=== PATIENT | male | born 1970 | race Caucasian/White ===

== ENCOUNTER → 2020-09-08 01:41 | Outpatient (CLI) | payer OTHER, SELFPAY ==
[2020-09-09 08:28] LABS: SARS-CoV-2 RNA PCR Negative
== END ==
PROVIDERS: PCP Family Medicine; Visit Provider Internal Medicine Gastroenterology
DX: Z01.812 Encounter for preprocedural laboratory examination (principal); Z20.822 Contact with and (suspected) exposure to COVID-19
CPT/HCPCS: C9803; U0003; U0005

== ENCOUNTER 2020-09-11 01:01 | Day surgery (SDC) | payer OTHER, SELFPAY ==
[2020-08-29 15:25] VITALS: BMI 25.4
[2020-09-11 08:52] VITALS: BP 122/79; PULSE 71; RESP 18; TEMP 36.2; O2SAT 100
[2020-09-11] MEDS: LACTATED RINGERS 1,000 ML 150 ML IV CONT (09:00)
--- NOTE | 2020-09-11 09:42 | WPDANESEPPF ---
Anes - Initial Pre Proc Eval Procedure: Operation Date: 09/11/20 10:00 Proposed Procedures p Colonoscopy - Ze Montemayor MD Date/Time: 09/11/20 09:42 Surgeon: Ze Montemayor MD Pre Op Diagnosis: Diarrhea Patient Data Age: 50 Gender: M Height: 6 ft 6 in Weight: 97.8 kg Last Vital Signs Temp 97.2 F L 09/11/20 08:52 Pulse 71 09/11/20 08:52 Resp 18 09/11/20 08:52 BP 122/79 09/11/20 08:52 Pulse Ox 100 09/11/20 08:52 Allergies Allergy/AdvReac Type Severity Reaction Status Date / Time No Known Allergies Allergy Verified 08/29/20 15:25 Home Medications Medication Instructions Recorded Confirmed Type No Home Medications 09/11/20 09/11/20 History Patient hx anesthesia problems: none Family hx anesthesia problems: none PMFSH Past Medical History Medical History BMI 25.0-25.9,adult Family History Family History Father Hypertension Family history of cardiovascular disease Acute myocardial infarction Mother Family history of cardiovascular disease Family history of malignant neoplasm of breast in first degree relative Family history of malignant neoplasm of breast Heart disease Sibling No problems noted. 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 Questions were solicited and answers provided to the satisfaction of the patient/family/POA.
--- NOTE | 2020-09-11 09:55 | PM.HPGS ---
History of Present Illness History of Present Illness Consent: Risks, benefits, and alternatives have been discussed and questions answered. Patient agrees to proceed with procedure. Chief complaint: Diarrhea Narrative: Duncan Mckeon Jr. is a 50 year old male here for first screening colonoscopy, also abnormal stools for a year since he had episode of diarrhea that lasted week Review of Systems Constitutional: Constitutional: Denies headache(s) and Denies weakness Eyes: Eyes: Denies blurry vision ENT: Reports Normal hearing present, Denies headache(s) and Denies neck pain Cardiovascular: Cardiovascular: Denies chest pain and Denies dyspnea Respiratory: Respiratory: Denies dyspnea Gastrointestinal: Gastrointestinal: Reports no additional gastrointestinal complaints Genitourinary: Genitourinary: Denies dysuria Musculoskeletal: Musculoskeletal: Denies neck pain Integumentary/Breasts: Skin/Breast: Denies dry skin Neurologic: Reports Normal hearing present, Denies headache(s) and Denies weakness Psychiatric: Psychiatric: Denies anxiety Endocrine: Endocrine: Denies change in body appearance Hematologic/Lymphatic: Hematologic/Lymphatic: Denies easy bleeding Allergic/Immunologic: Allergic/Immunologic: Denies urticaria PMF Past Medical History Medical History BMI 25.0-25.9,adult Family History Family History Father Hypertension Family history of cardiovascular disease Acute myocardial infarction Mother Family history of cardiovascular disease Family history of malignant neoplasm of breast in first degree relative Family history of malignant neoplasm of breast Heart disease Sibling No problems noted. 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 Gender identity (if verbalized by the patient): Male Spiritual care concerns: No Meds Home Medications and Allergies Home Medications Medication Instructions Recorded Confirmed Type No Home Medications 09/11/20 09/11/20 History Allergies Allergy/AdvReac Type Severity Reaction Status Date / Time No Known Allergies Allergy Verified 08/29/20 15:25 Vital Signs Vital Signs - 24 hr 09/11/20 08:52 Temperature 97.2 F L Pulse Rate 71 Respiratory Rate 18 Blood Pressure 122/79 Pulse Oximetry 100 Exam Const: General: comfortable and no acute distress HENMT: General nose exam: Normal nares present Eyes: General: appearance normal, both eyes and all related structures Neck: Neck: no JVD Resp: Auscultation: clear to auscultation bilaterally Cardio: Rate: regular rate Rhythm: regular rhythm GI: Inspection: non-distended GI Palp: Yes Soft to palpation Skin: General skin exam: normal color Neuro: General: gait normal Speech: normal speech Extrem: General: normal to inspection Psych: Mental Status: mental status grossly normal Assessment and Plan Assessment and plan (1) Diarrhea: Code(s): R19.7 - Diarrhea, unspecified Status: Acute (2) Colon cancer screening: Code(s): Z12.11 - Encounter for screening for malignant neoplasm of colon Status: Acute Assessment and Plan: colonoscopy
[2020-09-11 10:09] VITALS: BP 126/78; PULSE 64; RESP 16; O2SAT 98
[2020-09-11 10:19] VITALS: BP 120/74; PULSE 59; RESP 21; O2SAT 98
[2020-09-11 10:29] VITALS: BP 116/79; PULSE 58; RESP 21; O2SAT 99
== END 2020-09-11 10:39 | disposition home or self-care (01) ==
PROVIDERS: PCP Family Medicine; Visit Provider Internal Medicine Gastroenterology
PROC: 0DJD8ZZ Inspection of Lower Intestinal Tract, Via Natural or Artificial Opening Endoscopic (ICD-10-PCS; CPT 45378; principal; 2020-09-11 10:00)
DX: Z12.11 Encounter for screening for malignant neoplasm of colon (principal); K52.9 Noninfective gastroenteritis and colitis, unspecified; K64.8 Other hemorrhoids; K64.4 Residual hemorrhoidal skin tags
CPT/HCPCS: 45380; 88305; J2704; J7120

== ENCOUNTER 2020-09-28 12:18 | Outpatient (CLI) | payer OTHER, SELFPAY ==
[2020-09-28 12:40] LABS: Hematocrit 40.1 % (42.0-52.0); Mean Corpuscular HGB Conc 32.4 g/dl (32-36); Mean Corpuscular Hemoglobin 30.8 pg (26-34); Platelet Count Result 480 k/mm3 (150-375); Red Blood Count 4.22 M/mm3 (4.6-6.20); White Blood Count 8.1 K/mm3 (4.5-10.0)
[2020-09-28 12:59] LABS: Rheumatoid Factor < 8.6 IU/ML (<12)
[2020-09-28 13:08] LABS: Alanine Aminotransferase 47 U/L (4-50); Albumin Level 3.9 g/dL (3.5-5.1); Alkaline Phosphatase 96 U/L (38-126); Anion Gap 4 mmol/L (8-16); Aspartate Amino Transferase 40 U/L (17-59); Bilirubin,Total 0.3 mg/dL (0.2-1.3); Blood Urea Nitrogen 15 mg/dL (9-20); CRP 1.7 mg/dL (<1.0); Calcium 9.2 mg/dL (8.4-10.2); Carbon Dioxide 32 mmol/L (22-30); Chloride 102 mmol/L (98-107); Creatine Kinase 82 U/L (55-170); Estimated Glomerular Filt Rate > 60; Glucose 95 mg/dL (75-110); Potassium 4.4 mmol/L (3.4-5.0); Sodium 138 mmol/L (137-145)
[2020-09-28 13:14] LABS: Erythrocyte Sedimentation Rate 36 mm/hr (0-20)
[2020-09-28 13:52] LABS: Hepatitis B Surface Antigen Negative (Negative)
[2020-09-28 14:10] LABS: Hepatitis B Surface Anti Res Negative
[2020-10-02 08:34] LABS: Hepatitis B Core Ab Total Nonreactive (Nonreactive)
[2020-10-03 06:29] LABS: Aldolase 5.8 U/L (<=8.1)
[2020-10-06 17:31] LABS: TPMT Activity 15
== END 2020-09-28 12:19 | disposition home or self-care (01) ==
PROVIDERS: PCP Family Medicine; Visit Provider Internal Medicine Gastroenterology
DX: K51.90 Ulcerative colitis, unspecified, without complications (principal); R19.7 Diarrhea, unspecified; M79.10 Myalgia, unspecified site
CPT/HCPCS: 36415; 80053; 82085; 82550; 82657; 85027; 85652; 86038; 86140; 86430; 86704; 86706; 87340

== ENCOUNTER 2020-10-03 08:58 | Outpatient (CLI) | payer OTHER, SELFPAY ==
[2020-10-05 20:31] LABS: NIL 0.03 IU/mL; Quantiferon TB Plus, 1T NEGATIVE (NEGATIVE)
== END 2020-10-03 08:59 | disposition home or self-care (01) ==
PROVIDERS: PCP Family Medicine; Visit Provider Internal Medicine Gastroenterology
DX: K51.90 Ulcerative colitis, unspecified, without complications (principal); R19.7 Diarrhea, unspecified
CPT/HCPCS: 36415; 86480

== ENCOUNTER 2021-07-24 10:42 | Outpatient (CLI) | payer OTHER, SELFPAY ==
[2021-07-24 11:17] LABS: Hematocrit 42.2 % (42.0-52.0); Hemoglobin 13.8 g/dL (14.0-18.0); Mean Corpuscular HGB Conc 32.7 g/dl (32-36); Mean Corpuscular Hemoglobin 31.8 pg (26-34); Mean Corpuscular Volume 97.2 fl (80-100); Mean Platelet Volume 10.2 fl (7.4-10.4); Platelet Count Result 239 k/mm3 (150-375); Red Blood Count 4.34 M/mm3 (4.6-6.20); Red Cell Distribution Width 13.7 % (11.5-14.5); White Blood Count 5.9 K/mm3 (4.5-10.0)
[2021-07-24 11:34] LABS: Alanine Aminotransferase 26 U/L (4-50); Albumin Level 4.2 g/dL (3.5-5.1); Alkaline Phosphatase 71 U/L (38-126); Anion Gap 7 mmol/L (8-16); Aspartate Amino Transferase 30 U/L (17-59); Bilirubin,Total 0.4 mg/dL (0.2-1.3); Blood Urea Nitrogen 14 mg/dL (9-20); CRP 1.2 mg/dL (<1.0); Calcium 8.8 mg/dL (8.4-10.2); Carbon Dioxide 30 mmol/L (22-30); Chloride 101 mmol/L (98-107); Estimated Glomerular Filt Rate > 60; Glucose 95 mg/dL (65-110); Potassium 4.3 mmol/L (3.4-5.0); Sodium 138 mmol/L (137-145)
[2021-07-24 12:04] LABS: Erythrocyte Sedimentation Rate 14 mm/hr (0-20)
== END 2021-07-24 10:43 | disposition home or self-care (01) ==
LOC: ANHLAB 10:43
PROVIDERS: PCP Family Medicine; Visit Provider Internal Medicine Gastroenterology
DX: K51.90 Ulcerative colitis, unspecified, without complications (principal)
CPT/HCPCS: 36415; 80053; 85027; 85652; 86140

== ENCOUNTER 2021-08-13 00:33 | Day surgery (SDC) | payer OTHER, SELFPAY ==
[2021-08-03 13:14] VITALS: BMI 25.9
[2021-08-13 08:58] VITALS: BP 124/76; PULSE 53; RESP 18; TEMP 36; O2SAT 99
[2021-08-13] MEDS: LACTATED RINGERS 1,000 ML 150 ML IV CONT (09:00)
--- NOTE | 2021-08-13 09:23 | P.PNAN_ITS ---
Anes - Initial Pre Proc Eval Procedure: Operation Date: 08/13/21 10:00 Proposed Procedures p Colonoscopy - Ze Montemayor MD Date/Time: 08/13/21 09:23 Surgeon: Ze Montemayor MD Pre Op Diagnosis: ulcerative colitis Patient Data Age: 51 Gender: M Height: 1.98 m Weight: 105.2 kg Last Vital Signs Temp 36.0 C L 08/13/21 08:58 Pulse 53 L 08/13/21 08:58 Resp 18 08/13/21 08:58 BP 124/76 08/13/21 08:58 Pulse Ox 99 08/13/21 08:58 Allergies Allergy/AdvReac Type Severity Reaction Status Date / Time No Known Allergies Allergy Verified 08/13/21 08:56 Home Medications Medication Instructions Recorded Confirmed Type mesalamine 1.2 g PO DAILY 08/03/21 08/13/21 History Patient hx anesthesia problems: none Family hx anesthesia problems: none Results Review: All pre-operative results and documents have been reviewed as part of the pre-operative evaluation. [facility] Past Medical History Medical History BMI 25.0-25.9,adult Colon cancer screening Myalgia Ulcerative colitis Family History Family History Father Hypertension Family history of cardiovascular disease Acute myocardial infarction Mother Family history of cardiovascular disease Family history of malignant neoplasm of breast in first degree relative Family history of malignant neoplasm of breast Heart disease Sibling No problems noted. 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 Informed Consent: The patient's anesthetic plan and its attendant risks and benefits were discussed with the patient/family/POA. Questions were solicited and answers provided to the satisfaction of the patient/family/POA.
--- NOTE | 2021-08-13 09:51 | WPDHPUPDATE1 ---
History and Physical Update Update Date/Time: 08/13/21 09:51 History and Physical has been reviewed, including an updated exam of the patient. There are NO changes in the patient's condition. Risks, benefits, and alternatives have been discussed and questions answered. Patient agrees to proceed with procedure.
[2021-08-13 10:10] VITALS: BP 110/65; PULSE 51; RESP 12; O2SAT 98
[2021-08-13 10:20] VITALS: BP 110/63; PULSE 49; RESP 12; O2SAT 98
[2021-08-13 10:30] VITALS: BP 116/77; PULSE 50; RESP 12; O2SAT 98
== END 2021-08-13 10:45 | disposition home or self-care (01) ==
PROVIDERS: PCP Family Medicine; Visit Provider Internal Medicine Gastroenterology
PROC: 0DJD8ZZ Inspection of Lower Intestinal Tract, Via Natural or Artificial Opening Endoscopic (ICD-10-PCS; CPT 45378; principal; 2021-08-13 10:00)
DX: K51.90 Ulcerative colitis, unspecified, without complications (principal); K63.5 Polyp of colon; K64.8 Other hemorrhoids
CPT/HCPCS: 45380; 88305; J2704; J7120

== ENCOUNTER 2021-12-29 12:22 | Emergency (ER) | payer OTHER, SELFPAY ==
[2021-12-29 12:27] VITALS: BP 139/75; PULSE 65; RESP 18; TEMP 36.5; O2SAT 100
--- NOTE | 2021-12-29 12:58 | ED.GENADULT ---
HPI - General Adult General Chief complaint: Upper Respiratory Infection Stated complaint: chest sepideh,cough History of Present Illness HPI narrative: Patient is a 51-year-old male who presents to the [facility] care via POV for evaluation of URI symptoms that have been present for 1 week. Additionally, patient reports dry cough and chest congestion. No relief with Robitussin, decongestants, and TheraFlu. Nothing improves or worsen symptoms. Patient is vaccinated against COVID although not vaccinated against influenza. Denies known exposure to sick contacts. Related Data Allergies Allergy/AdvReac Type Severity Reaction Status Date / Time No Known Allergies Allergy Verified 12/10/21 08:53 Review of Systems Review of Systems: Denies fever, chills, sweats, change in appetite, poor p.o. intake, dizziness, headaches, sinus pressure, sinus pain, ear problems, nasal drainage, shortness of breath, cyanosis, wheezing, nausea, vomiting, diarrhea, abdominal pain, chest pain, and heart palpitations PMFSH Past Medical History Medical History BMI 25.0-25.9,adult Colon cancer screening Myalgia Ulcerative colitis Family History Family History Father Hypertension Family history of cardiovascular disease Acute myocardial infarction Mother Family history of cardiovascular disease Family history of malignant neoplasm of breast in first degree relative Family history of malignant neoplasm of breast Heart disease Sibling No problems noted. 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 There is no relevant family history pertinent to the presenting complaint. Exam Narrative: GENERAL: Well-appearing, well-nourished, and in no acute distress. HEAD: Normocephalic, atraumatic. No sinus tenderness or facial swelling appreciated. EYES: PERRLA and EOMI. No evidence of erythema, swelling, or drainage. ENT: Bilateral external ears and ear canals normal. Bilateral TMs are normal.No TM perforation. Nares clear, no rhinorrhea or epistaxis. Bilateral turbinates without erythema/ swelling. Mucous membranes moist and pink. Uvula is midline without erythema and swelling. No evidence of petechial rash, cobblestoning, lesions, ulcers, erythema, swelling, exudates, peritonsillar abscess, tenting, or drooling. Breath odor and voice normal. NECK: Supple. No Lymphadenopathy or nuchal rigidity appreciated. CHEST: Bilateral lung mcdonough are clear to auscultation. No respiratory distress. No evidence of pleuritic cp upon examination. Dry cough appreciated upon examination. Cough is subtle. HEART: Regular rate and rhythm. No murmur, gallop, or rub heard. EXTREMITIES: Normal range of motion. No edema. SKIN: Warm, dry, no rash. NEURO: No focal deficits. Alert and oriented x3. Course Course Level of Care: Express Care Visit Vital Signs Vital signs: Vital Signs Temperature 97.7 F 12/29/21 12:27 Pulse Rate 65 12/29/21 12:27 Respiratory Rate 18 12/29/21 12:27 Blood Pressure 139/75 12/29/21 12:27 Pulse Oximetry 100 12/29/21 12:27 Temperature 97.7 F 12/29/21 12:27 Pulse Rate 65 12/29/21 12:27 Respiratory Rate 18 12/29/21 12:27 Blood Pressure 139/75 12/29/21 12:27 Pulse Oximetry 100 12/29/21 12:27 Medical Decision Making Differential Diagnosis Differential Diagnosis:
== END 2021-12-29 13:02 | disposition home or self-care (01) ==
PROVIDERS: Emergency Provider Nurse Practitioner Family; PCP Family Medicine
DX: J06.9 Acute upper respiratory infection, unspecified (principal)
CPT/HCPCS: 99213; G0463

== ENCOUNTER 2022-02-26 16:25 | Outpatient (CLI) | payer OTHER, SELFPAY ==
--- NOTE | ~2022-02-26 | XR_ITS ---
EXAM: XR toe 4th LT min 2V DATE: 02/26/2022 17:08 HISTORY: STUBBED TOE X5WKS AGO. PAIN TO 4TH DIGIT . COMPARISON: None available. FINDINGS: Decreased mineralization. Oblique nondisplaced fracture of the left fourth proximal phalan ge, with intra-articular extension. No lytic or blastic lesion. Joint spaces are maintained. No erosi on or periosteal change. Soft tissues within normal limits. IMPRESSION: Nondisplaced, oblique, intra-articular fracture of the left fourth proximal phalange. Reviewed, dictated and finalized at location K.
--- NOTE | 2022-02-26 16:39 | ECG_ITS ---
Measurements Intervals Lapel Rate: 42 P: 52 TN: 199 QRS: -20 QRSD: 107 T: 2 QT: 473 QTc: 396 Interpretive Statements SINUS BRADYCARDIA BORDERLINE ECG NO PREVIOUS ECG AVAILABLE FOR COMPARISON Electronically Signed On 02-26-2022 18:30:04 CDT by Dion Tao M.D.
[2022-02-26 16:54] LABS: Hematocrit 43.6 % (42.0-52.0); Hemoglobin 13.8 g/dL (14.0-18.0); Mean Corpuscular HGB Conc 31.7 g/dl (32-36); Mean Corpuscular Hemoglobin 30.9 pg (26-34); Mean Corpuscular Volume 97.5 fl (80-100); Mean Platelet Volume 10.1 fl (7.4-10.4); Platelet Count Result 279 k/mm3 (150-375); Red Blood Count 4.47 M/mm3 (4.6-6.20); Red Cell Distribution Width 13.2 % (11.5-14.5); White Blood Count 7.5 K/mm3 (4.5-10.0)
[2022-02-26 17:06] LABS: Cholesterol 188 mg/dL (0-200); HDL Direct 67 mg/dL; Triglycerides 73 mg/dL (<150)
[2022-02-26 17:12] LABS: Alanine Aminotransferase 18 U/L (6-50); Albumin Level 4.5 g/dL (3.5-5.1); Alkaline Phosphatase 66 U/L (38-126); Anion Gap 9 mmol/L (8-16); Aspartate Amino Transferase 27 U/L (17-59); Bilirubin,Total 0.4 mg/dL (0.2-1.3); Blood Urea Nitrogen 18 mg/dL (9-20); CRP < 0.5 mg/dL (<1.0); Calcium 8.8 mg/dL (8.4-10.2); Carbon Dioxide 26 mmol/L (22-30); Chloride 104 mmol/L (98-107); Estimated Glomerular Filt Rate 58; Glucose 91 mg/dL (65-110); Potassium 4.6 mmol/L (3.4-5.0); Sodium 139 mmol/L (137-145)
[2022-02-26 17:31] LABS: LDL Cholesterol Direct 94 mg/dL
[2022-02-26 17:39] LABS: Prostate Specific Antigen 0.8 ng/mL (< OR = 4.0); Thyroid Stimulating Hormone 0.991 uIU/mL (0.465-4.680)
[2022-02-26 17:54] LABS: Erythrocyte Sedimentation Rate 9 mm/hr (0-20)
== END 2022-02-26 16:26 | disposition home or self-care (01) ==
PROVIDERS: Nurse Practitioner Family; PCP Family Medicine; Visit Provider Internal Medicine Gastroenterology
DX: K51.90 Ulcerative colitis, unspecified, without complications (principal); Z13.220 Encounter for screening for lipoid disorders; Z13.29 Encounter for screening for other suspected endocrine disorder; Z12.5 Encounter for screening for malignant neoplasm of prostate; R03.0 Elevated blood-pressure reading, without diagnosis of hypertension; M79.676 Pain in unspecified toe(s); S92.515A Nondisplaced fracture of proximal phalanx of left lesser toe(s), initial encounter for closed fracture; X58.XXXA Exposure to other specified factors, initial encounter; R94.31 Abnormal electrocardiogram [ECG] [EKG]
CPT/HCPCS: 36415; 73660; 80053; 80061; 84153; 84443; 85027; 85652; 86140; 93005; G0103

== ENCOUNTER 2022-09-13 08:26 | Outpatient (CLI) | payer OTHER, SELFPAY ==
[2022-09-13 08:56] LABS: Hematocrit 45.3 % (42.0-52.0); Hemoglobin 14.6 g/dL (14.0-18.0); Mean Corpuscular HGB Conc 32.2 g/dl (32-36); Mean Corpuscular Hemoglobin 31.3 pg (26-34); Platelet Count Result 277 k/mm3 (150-375); Red Blood Count 4.67 M/mm3 (4.6-6.20); Red Cell Distribution Width 14.1 % (11.5-14.5); White Blood Count 6.3 K/mm3 (4.5-10.0)
[2022-09-13 09:09] LABS: Alanine Aminotransferase 40 U/L (6-50); Albumin Level 4.4 g/dL (3.5-5.1); Alkaline Phosphatase 75 U/L (38-126); Anion Gap 5 mmol/L (8-16); Aspartate Amino Transferase 50 U/L (17-59); Bilirubin,Total 0.9 mg/dL (0.2-1.3); Blood Urea Nitrogen 24 mg/dL (9-20); CRP < 0.5 mg/dL (<1.0); Calcium 8.8 mg/dL (8.4-10.2); Carbon Dioxide 29 mmol/L (22-30); Chloride 105 mmol/L (98-107); Estimated Glomerular Filt Rate > 60; Glucose 89 mg/dL (65-110); Potassium 4.2 mmol/L (3.4-5.0); Sodium 139 mmol/L (137-145)
[2022-09-13 11:16] LABS: Erythrocyte Sedimentation Rate 8 mm/hr (0-20)
== END 2022-09-13 08:27 | disposition home or self-care (01) ==
LOC: ANHLAB 08:27
PROVIDERS: PCP Family Medicine; Visit Provider Internal Medicine Gastroenterology
DX: K51.90 Ulcerative colitis, unspecified, without complications (principal)
CPT/HCPCS: 36415; 80053; 85027; 85652; 86140

== ENCOUNTER 2022-12-09 07:08 | Outpatient (CLI) | payer OTHER, SELFPAY ==
[2022-12-09 08:15] LABS: Cholesterol 225 mg/dL (0-200); HDL Direct 62 mg/dL; Triglycerides 64 mg/dL (<150)
[2022-12-09 08:26] LABS: LDL Cholesterol Direct 138 mg/dL
[2022-12-09 08:45] LABS: Prostate Specific Antigen 0.7 ng/mL (< OR = 4.0)
== END 2022-12-09 07:09 | disposition home or self-care (01) ==
PROVIDERS: PCP Family Medicine; Visit Provider Nurse Practitioner Family
DX: Z12.5 Encounter for screening for malignant neoplasm of prostate (principal); Z13.220 Encounter for screening for lipoid disorders
CPT/HCPCS: 36415; 80061; 84153; 84443; G0103

== ENCOUNTER 2023-01-15 08:41 | Outpatient (CLI) | payer OTHER, SELFPAY ==
--- NOTE | 2023-01-15 08:47 | EST_ITS ---
Patient Info Name: Duncan Mckeon Age: 52 years : 1970 Gender: Male Ht: 78 in Wt: 235 lbs BSA: 2.43 m2 HR: 56 bpm BP: 123 / 91 mmHg Heart Rhythm: Sinus Rhythm Exam Date: 01/15/2023 8:58 AM Exam Location: [facility] Stress Patient Status: Outpatient Admit Date: 01/15/2023 Staff Ordering Physician: Janet Hernandez Attending Provider: Janet Hernandez Exercise Technologist: Lety Gann CT Exercise Physician: Anthony Wilson DO Exam Type: CA stress test treadmill Study Info Indications Z82.49 - Family history of ischemic heart disease and other diseases of the circulatory system R06.02 - Shortness of breath A treadmill exercise stress test was performed. Summary 1. 1. Negative Jimbo exercise stress test for ischemic ST changes by ECG criteria. 2. 2. Good functional capacity, achieving 12 METs of workload. 3. 3. Appropriate HR response to exercise. 4. 4. Appropriate HR recovery at 1 minute post exercise. 5. 5. No imaging with stress testing. 6. 6. Patient informed of the above results. Protocol: Jimbo Stress ECG Details Stage: REST Duration (min): 1 min : 0 sec Speed (mph): 0.0 Grade (%): 0 HR (bpm): 51 SBP (mmHg): 123 DBP (mmHg): 91 METS: --- Stage: REST Duration (min): 5 min : 8 sec Speed (mph): 0.0 Grade (%): 0 HR (bpm): 76 SBP (mmHg): 123 DBP (mmHg): 91 METS: --- Stage: STAGE 1 Duration (min): 1 min : 0 sec Speed (mph): 1.7 Grade (%): 10 HR (bpm): 84 SBP (mmHg): 123 DBP (mmHg): 91 METS: --- Stage: STAGE 1 Duration (min): 2 min : 0 sec Speed (mph): 1.7 Grade (%): 10 HR (bpm): 85 SBP (mmHg): 123 DBP (mmHg): 91 METS: --- Stage: STAGE 1 Duration (min): 3 min : 0 sec Speed (mph): 1.7 Grade (%): 10 HR (bpm): 80 SBP (mmHg): 138 DBP (mmHg): 63 METS: --- Stage: STAGE 2 Duration (min): 1 min : 0 sec Speed (mph): 2.5 Grade (%): 12 HR (bpm): 94 SBP (mmHg): 138 DBP (mmHg): 63 METS: --- Stage: STAGE 2 Duration (min): 2 min : 0 sec Speed (mph): 2.5 Grade (%): 12 HR (bpm): 98 SBP (mmHg): 142 DBP (mmHg): 66 METS: --- Stage: STAGE 2 Duration (min): 3 min : 0 sec Speed (mph): 2.5 Grade (%): 12 HR (bpm): 99 SBP (mmHg): 142 DBP (mmHg): 66 METS: --- Stage: STAGE 3 Duration (min): 1 min : 0 sec Speed (mph): 3.4 Grade (%): 14 HR (bpm): 110 SBP (mmHg): 167 DBP (mmHg): 59 METS: --- Stage: STAGE 3 Duration (min): 2 min : 0 sec Speed (mph): 3.4 Grade (%): 14 HR (bpm): 113 SBP (mmHg): 167 DBP (mmHg): 59 METS: --- Stage: STAGE 3 Duration (min): 3 min : 0 sec Speed (mph): 3.4 Grade (%): 14 HR (bpm): 116 SBP (mmHg): 194 DBP (mmHg): 87 METS: --- Stage: STAGE 4 Duration (min): 1 min : 0 sec Speed (mph): 4.2 Grade (%): 16 HR (bpm): 130 SBP (mmHg): 194 DBP (mmHg): 87 METS: --- Stage: STAGE 4 Duration (min): 2 min : 0 sec Speed (mph
== END 2023-01-15 08:42 | disposition home or self-care (01) ==
PROVIDERS: PCP Family Medicine; Visit Provider Nurse Practitioner Family
DX: R06.02 Shortness of breath (principal); Z82.49 Family history of ischemic heart disease and other diseases of the circulatory system
CPT/HCPCS: 93017

== ENCOUNTER 2023-04-16 15:02 | Outpatient (CLI) | payer OTHER, SELFPAY ==
[2023-04-16 15:28] LABS: Hemoglobin 14.5 g/dL (14.0-18.0); Mean Corpuscular HGB Conc 32.2 g/dl (32-36); Mean Corpuscular Hemoglobin 31.1 pg (26-34); Mean Corpuscular Volume 96.6 fl (80-100); Platelet Count Result 295 k/mm3 (150-375); Red Blood Count 4.66 M/mm3 (4.6-6.20); Red Cell Distribution Width 13.2 % (11.5-14.5); White Blood Count 5.6 K/mm3 (4.5-10.0)
[2023-04-16 15:39] LABS: Alanine Aminotransferase 31 U/L (6-50); Albumin Level 4.2 g/dL (3.5-5.1); Alkaline Phosphatase 89 U/L (38-126); Anion Gap 6 mmol/L (8-16); Aspartate Amino Transferase 34 U/L (17-59); Bilirubin,Total 0.6 mg/dL (0.2-1.3); Blood Urea Nitrogen 21 mg/dL (9-20); CRP < 0.5 mg/dL (<1.0); Carbon Dioxide 27 mmol/L (22-30); Chloride 105 mmol/L (98-107); Estimated Glomerular Filt Rate 58; Glucose 93 mg/dL (65-110); Potassium 4.4 mmol/L (3.4-5.0); Sodium 138 mmol/L (137-145)
[2023-04-16 16:04] LABS: Erythrocyte Sedimentation Rate 6 mm/hr (0-20)
== END 2023-04-16 15:03 | disposition home or self-care (01) ==
PROVIDERS: PCP Family Medicine; Visit Provider Internal Medicine Gastroenterology
DX: K51.90 Ulcerative colitis, unspecified, without complications (principal)
CPT/HCPCS: 36415; 80053; 85027; 85652; 86140

== ENCOUNTER 2023-10-01 16:31 | Outpatient (CLI) | payer OTHER, SELFPAY ==
[2023-10-01 16:43] LABS: Hematocrit 47.5 % (42.0-52.0); Hemoglobin 15.5 g/dL (14.0-18.0); Mean Corpuscular HGB Conc 32.6 g/dl (32-36); Mean Corpuscular Hemoglobin 31.4 pg (26-34); Mean Corpuscular Volume 96.2 fl (80-100); Platelet Count Result 304 k/mm3 (150-375); Red Blood Count 4.94 M/mm3 (4.6-6.20); Red Cell Distribution Width 12.9 % (11.5-14.5); White Blood Count 5.7 K/mm3 (4.5-10.0)
[2023-10-01 17:05] LABS: Alanine Aminotransferase 24 U/L (6-50); Albumin Level 4.4 g/dL (3.5-5.1); Alkaline Phosphatase 76 U/L (38-126); Anion Gap 7 mmol/L (4-12); Aspartate Amino Transferase 36 U/L (17-59); Bilirubin,Total 0.4 mg/dL (0.2-1.3); Blood Urea Nitrogen 20 mg/dL (9-20); CRP < 0.5 mg/dL (<1.0); Calcium 9.1 mg/dL (8.4-10.2); Carbon Dioxide 26 mmol/L (22-30); Chloride 109 mmol/L (98-107); Estimated Glomerular Filt Rate 53; Glucose 84 mg/dL (65-110); Potassium 4.1 mmol/L (3.4-5.0); Sodium 142 mmol/L (137-145)
[2023-10-01 17:47] LABS: Erythrocyte Sedimentation Rate 5 mm/hr (0-20)
== END 2023-10-01 16:32 | disposition home or self-care (01) ==
LOC: ANHLAB 16:33
PROVIDERS: PCP Family Medicine; Visit Provider Nurse Practitioner
DX: K51.90 Ulcerative colitis, unspecified, without complications (principal)
CPT/HCPCS: 36415; 80053; 85027; 85652; 86140

== ENCOUNTER 2023-12-29 10:49 | Outpatient (CLI) | payer OTHER, SELFPAY ==
[2023-12-29 12:10] LABS: Anion Gap 9 mmol/L (4-12); Blood Urea Nitrogen 16 mg/dL (9-20); Calcium 9.3 mg/dL (8.4-10.2); Carbon Dioxide 25 mmol/L (22-30); Chloride 105 mmol/L (98-107); Cholesterol 206 mg/dL (0-200); Estimated Glomerular Filt Rate 53; Glucose 82 mg/dL (65-110); HDL Direct 61 mg/dL; Potassium 4.5 mmol/L (3.4-5.0); Sodium 139 mmol/L (137-145); Triglycerides 60 mg/dL (<150)
[2023-12-29 12:20] LABS: LDL Cholesterol Direct 115 mg/dL
[2023-12-29 12:40] LABS: Prostate Specific Antigen 0.7 ng/mL (< OR = 4.0)
[2023-12-29 13:05] LABS: Hepatitis B Surface Anti Res Negative
== END 2023-12-29 10:50 | disposition home or self-care (01) ==
LOC: ANHLAB 10:50
PROVIDERS: PCP Family Medicine; Visit Provider Family Medicine
DX: Z12.5 Encounter for screening for malignant neoplasm of prostate (principal); N28.9 Disorder of kidney and ureter, unspecified; Z13.220 Encounter for screening for lipoid disorders; Z13.0 Encounter for screening for diseases of the blood and blood-forming organs and certain disorders involving the immune mechanism; Z13.228 Encounter for screening for other metabolic disorders; Z13.29 Encounter for screening for other suspected endocrine disorder
CPT/HCPCS: 36415; 80048; 80061; 84153; 86706; G0103

== ENCOUNTER 2024-02-06 10:57 | Outpatient (CLI) | payer OTHER, SELFPAY ==
[2024-02-06 11:41] LABS: Hematocrit 45.5 % (42.0-52.0); Hemoglobin 14.5 g/dL (14.0-18.0); Mean Corpuscular HGB Conc 31.9 g/dl (32-36); Mean Corpuscular Hemoglobin 31.2 pg (26-34); Mean Corpuscular Volume 97.8 fl (80-100); Mean Platelet Volume 10.3 fl (7.4-10.4); Platelet Count Result 270 k/mm3 (150-375); Red Blood Count 4.65 M/mm3 (4.6-6.20); Red Cell Distribution Width 13.2 % (11.5-14.5); White Blood Count 4.6 K/mm3 (4.5-10.0)
[2024-02-06 11:54] LABS: Alanine Aminotransferase 22 U/L (6-50); Albumin Level 4.5 g/dL (3.5-5.1); Alkaline Phosphatase 57 U/L (38-126); Anion Gap 3 mmol/L (4-12); Aspartate Amino Transferase 26 U/L (17-59); Bilirubin,Total 0.6 mg/dL (0.2-1.3); Blood Urea Nitrogen 20 mg/dL (9-20); CRP < 0.5 mg/dL (<1.0); Calcium 9.3 mg/dL (8.4-10.2); Carbon Dioxide 31 mmol/L (22-30); Chloride 103 mmol/L (98-107); Estimated Glomerular Filt Rate 58; Glucose 95 mg/dL (65-110); Potassium 4.8 mmol/L (3.4-5.0); Sodium 137 mmol/L (137-145)
[2024-02-06 12:14] LABS: Erythrocyte Sedimentation Rate 6 mm/hr (0-20)
[2024-02-06 14:52] LABS: Hepatitis B Surface Antigen Negative (Negative)
[2024-02-06 15:09] LABS: Hepatitis B Surface Anti Res Negative
[2024-02-07 15:09] LABS: Hepatitis B Core Ab Total NON-REACTIVE (NON-REACTIVE)
[2024-02-10 15:03] LABS: NIL 0.02 IU/mL; Quantiferon TB Plus, 1T NEGATIVE (NEGATIVE)
== END 2024-02-06 10:58 | disposition home or self-care (01) ==
PROVIDERS: PCP Family Medicine; Visit Provider Nurse Practitioner
DX: K51.90 Ulcerative colitis, unspecified, without complications (principal); K90.9 Intestinal malabsorption, unspecified; R15.2 Fecal urgency; R19.7 Diarrhea, unspecified
CPT/HCPCS: 36415; 80053; 85027; 85652; 86140; 86480; 86704; 86706; 87340

== ENCOUNTER 2024-02-11 10:14 | Outpatient (CLI) | payer OTHER, SELFPAY ==
[2024-02-12 01:00] LABS: Toxigenic C. Diff NEGATIVE (NEGATIVE)
[2024-02-17 18:59] LABS: Calprotectin, Stool 6 mcg/g
[2024-02-17 19:14] LABS: Pancreatic Elastase, Stool >500 mcg/g
== END 2024-02-11 10:15 | disposition home or self-care (01) ==
LOC: ANHLAB 10:15
PROVIDERS: PCP Family Medicine; Visit Provider Nurse Practitioner
DX: K51.90 Ulcerative colitis, unspecified, without complications (principal); K90.9 Intestinal malabsorption, unspecified; R19.7 Diarrhea, unspecified; R15.2 Fecal urgency
CPT/HCPCS: 82653; 83993; 87045; 87324; 87427; 87449; 87493

== ENCOUNTER 2024-05-03 11:19 | Outpatient (CLI) | payer OTHER, SELFPAY ==
[2024-05-03 11:46] LABS: Hematocrit 44.7 % (42.0-52.0); Hemoglobin 14.3 g/dL (14.0-18.0); Mean Corpuscular Hemoglobin 30.9 pg (26-34); Mean Corpuscular Volume 96.5 fl (80-100); Mean Platelet Volume 9.8 fl (7.4-10.4); Platelet Count Result 308 k/mm3 (150-375); Red Blood Count 4.63 M/mm3 (4.6-6.20); White Blood Count 7.1 K/mm3 (4.5-10.0)
[2024-05-03 11:53] LABS: Alanine Aminotransferase 19 U/L (6-50); Albumin Level 4.3 g/dL (3.5-5.1); Alkaline Phosphatase 66 U/L (38-126); Anion Gap 6 mmol/L (4-12); Aspartate Amino Transferase 24 U/L (17-59); Bilirubin,Total 0.6 mg/dL (0.2-1.3); Blood Urea Nitrogen 17 mg/dL (9-20); CRP < 0.5 mg/dL (<1.0); Calcium 9.2 mg/dL (8.4-10.2); Carbon Dioxide 28 mmol/L (22-30); Chloride 104 mmol/L (98-107); Estimated Glomerular Filt Rate > 60; Glucose 95 mg/dL (65-110); Sodium 138 mmol/L (137-145)
[2024-05-03 12:15] LABS: Erythrocyte Sedimentation Rate 4 mm/hr (0-20)
[2024-05-03 12:56] LABS: Hepatitis B Surface Antigen Negative (Negative)
[2024-05-03 13:13] LABS: Hepatitis B Surface Anti Res Negative
[2024-05-05 08:03] LABS: Hepatitis B Core Ab Total NON-REACTIVE (NON-REACTIVE)
[2024-05-05 18:28] LABS: NIL 0.03 IU/mL; Quantiferon TB Plus, 1T NEGATIVE (NEGATIVE); TB1-NIL 0.01 IU/mL; TB2-NIL 0.02 IU/mL
== END 2024-05-03 11:20 | disposition home or self-care (01) ==
LOC: ANHLAB 11:20
PROVIDERS: PCP Family Medicine; Visit Provider Nurse Practitioner
DX: K51.90 Ulcerative colitis, unspecified, without complications (principal); R19.7 Diarrhea, unspecified
CPT/HCPCS: 36415; 80053; 85027; 85652; 86140; 86480; 86704; 86706; 87340

== ENCOUNTER 2024-05-04 07:30 | Outpatient (NON) | payer OTHER, SELFPAY ==
[2024-05-04 09:17] LABS: Toxigenic C. Diff NEGATIVE (NEGATIVE)
[2024-05-07 16:42] LABS: Concentrate Ova and Parasites No Ova or Parasites
[2024-05-07 16:44] LABS: Trichrome Ova and Parasites No Ova or Parasites
[2024-05-11 00:54] LABS: Calprotectin, Stool 101 mcg/g
== END 2024-05-04 07:31 | disposition home or self-care (01) ==
PROVIDERS: PCP Family Medicine; Visit Provider Nurse Practitioner
DX: R19.7 Diarrhea, unspecified (principal); K51.90 Ulcerative colitis, unspecified, without complications
CPT/HCPCS: 83993; 87045; 87177; 87209; 87269; 87427; 87449; 87493

== ENCOUNTER 2024-07-15 11:08 | Outpatient (CLI) | payer OTHER, SELFPAY ==
--- NOTE | ~2024-07-15 | XR_ITS ---
EXAMINATION: XR chest 2V 07/15/2024 11:52 INDICATION: Acute cough PROCEDURE: 2 view chest COMPARISON: No prior studies for comparison. FINDINGS: The lungs are clear. There is a prominent right nipple shadow. The cardiomediastinal silhou ette is within normal limits. There are no pleural effusions. There is no pneumothorax suspected. IMPRESSION: 1: NO ACUTE CARDIOPULMONARY DISEASE. Reviewed, dictated and finalized at location B. 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
== END 2024-07-15 11:09 | disposition home or self-care (01) ==
LOC: GOSHIMG 11:09
PROVIDERS: PCP Family Medicine; Visit Provider Family Medicine
DX: R05.1 Acute cough (principal)
CPT/HCPCS: 71046

== ENCOUNTER 2024-08-23 01:40 | Day surgery (SDC) | payer OTHER, SELFPAY ==
[2024-08-05 13:50] VITALS: BMI 26.7
--- OUTSIDE RECORDS SUMMARY | 2024-08-23 01:43 | XMS_ITS | Referral Summary ---
Author Organization [facility] Address [address] [place] [address] Care Team Providers Care Coach Name Role Phone Charly Gonzalez MD Primary Care Provider [phone] Allergies Active Allergy Reactions Criticality Noted Date Comments Venom-Honey Bee Anaphylaxis High Reaction: ANAPHYLAXIS, Medications cephalexin (KEFLEX) 500 mg capsule take 1 capsule by oral route every 6 hours 28 0 11/05/2013 Active EPINEPHrine (EPIPEN) 0.3 mg/0.3 mL injection syringe Take as directed 2 2 08/11/2008 Active cyclobenzaprine (FLEXERIL) 10 mg tablet 03/09/2018 Active naproxen (NAPROSYN) 500 mg tablet 03/13/2018 Active predniSONE (DELTASONE) 20 mg tablet 03/04/2018 Active mesalamine (PENTASA) 250 mg CR capsuleIndicati ons:Ulcerative Colitis Take 250 mg by mouth 4 (four) times a day Active Active Problems Problem Noted Date Diagnosed Date Actinic keratosis 03/12/2017 History of nonmelanoma skin cancer 03/12/2017 Lentigo 03/11/2016 Photoaged skin 03/11/2016 Multiple benign melanocytic nevi 03/07/2015 Cervicalgia 07/01/2014 Multiple-type hyperlipidemia 11/05/2013 Overview (10/11/2016): Mixed Hyperlipidemia Hypopigmentation 02/02/2013 Sunburn 02/02/2013 Immunizations Immunization Administration Dates Next Due Tdap 01/16/2010 Social History Tobacco Use Types Packs/Day Years Used Date Smoking Tobacco: Never Smokeless Tobacco: Never Tobacco Cessation:Counseling Given: Not Answered Alcohol Use Standard Drinks/Week Comments Yes 0 (1 standard drink = 0.6 oz pur e alcohol) Sex and Gender Information Value Date Recorded Sex Assigned at Not on file 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 Gender Identity Not on file Sexual Orientation Not on file Last Filed Vital Signs Vital Sign Reading Time Taken Comments Blood Pressure 128/72 05/11/2014 3:14 PM PLANER OPERATOR / GRADER Pulse 84 05/11/2014 3:14 PM PLANER OPERATOR / GRADER Temperature - - Respiratory Rate - - Oxygen Saturation - - Inhaled Oxygen Concentration - - Weight 104.8 kg (231 lb) 05/11/2014 3:14 PM PLANER OPERATOR / GRADER Height 198.1 cm (6' 6 ) 05/11/2014 3:14 PM PLANER OPERATOR / GRADER Body Mass Index 26.69 05/11/2014 3:14 PM PLANER OPERATOR / GRADER Plan of Treatment Not on file Insurance [facility] [id number] Member Subscriber Plan / Payer (Ef fective 2021-Present) Name:Duncan Mckeon Member ID:[id number] Relation to Subscriber:Self Name:Duncan Mckeon Subscriber ID:[id number] Payer ID:[id number] Type:Digital [employer] HMO/PPO Address: [address] [address] Care Teams Coach Relationship Specialty Start Date End Date Charly Gonzalez MD PCP - General Family Medicine 03/29/20
--- OUTSIDE RECORDS SUMMARY | 2024-08-23 01:43 | XMS_ITS | Continuity of Care Document ---
Author Organization [facility] Address [address] [place] [address] Phone Care Team Providers Care Reconciliation Accountant Name Role Phone Philip Higuera PT Unavailable Unavailable Procedures Procedure Date PT Evaluation Low Complexity Therapeutic Activities Neuromuscular Re-Ed Advance Directives Directive Yes / No Effective Date File Name No Information Encounters Encounter Description Practice Location Reason(s) For Visit Diagnoses Date Provider Providers Copied on Encounter [facility], [address], [place], [place], [id number], tel:[phone] [place] No Information [address] [facility], [address], [place], [place], [id number], tel:[phone] [place] No Information 2 Kalen Palacios. . Referring Provider: Charly Gonzalez, [address], [place], [address]. tel:[phone] Family History Family Member Type Diagnosis Age At Onset No Information Payers Payer name Insurance type Covered constitution party ID Authoriza tikallie(s) [employer] CI [id number] Social History Type Description Quantity Date Captured Comments Sex Male Smoking Status No Information Chief Complaint And Reason For Visit No Information Reason For Referral Reason For Referral No Information History Of Present Illness Encounter Date Complaint History Of Prese nt Illness No Information Functional Status Date Functional Assessmen t No Information Instructions Date Instruction Additional Infor omega Giving encouragement to exercise Related to Overweight Giving encouragement to exercise Related to Overweight Assessments Type Assessment Date No Information Patient Care Teams Name Effective Dates (start - stop) Status Members No Information
--- OUTSIDE RECORDS SUMMARY | 2024-08-23 01:44 | XMS_ITS | Clinical Summary ---
Author Organization [facility] Address [address] [place] [address] Care Team Providers Care Process Server Name Role Phone Charly Gonzalez MD Primary Care Provider Allergies Active Allergy Reactions Criticality Noted Date [...] Immunization Administration Dates Next Due Tdap 01/16/2010 Medical History Medical History Date Comments Hx Other Medical raynauds Hx Other Medical lumbar disc dis ease Hyperlipidemia Hyperlipidemia Hx Other Medical Back pain Family History Medical History Relation Name Comments Hypertension Father Family history of hypertension - (Added by TW Conv) Breast cancer Mother Family history of malignant neoplasm of breast - (Added by TW Conv) Heart disease Mother Family history of cardiac disorder - (Added by TW Conv) Alcohol abuse Other Family history of Alcoholism; Arthritis Other Family history of Arthritis; Cancer Other Family history of Cancer, unknown; Heart disease Other Family history of Heart disease; Hypertension Other Family history of Hypertension; Relation Name Status Comments Father Mother Other Social History Tobacco Use Types Packs/Day Years Used Date Smoking Tobacco: Never Smokeless Tobacco: Never Tobacco Cessation:Counseling Given: Not Answered Alcohol Use Standard Drinks/Week Comments Yes 0 (1 standard drink = 0.6 oz pur e alcohol) Sex and Gender Information Value Date Recorded Sex Assigned at Not on file 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 Gender Identity Not on file Sexual Orientation Not on file Obstetrics History Last Filed Vital Signs Vital Sign Reading Time Taken Comments Blood Pressure 128/72 05/11/2014 3:14 PM PREMIUM REPRESENTATIVE Pulse 84 05/11/2014 3:14 PM PREMIUM REPRESENTATIVE Temperature - - Respiratory Rate - - Oxygen Saturation - - Inhaled Oxygen Concentration - - Weight 104.8 kg (231 lb) 05/11/2014 3:14 PM PREMIUM REPRESENTATIVE Height 198.1 cm (6' 6 ) 05/11/2014 3:14 PM PREMIUM REPRESENTATIVE Body Mass Index 26.69 05/11/2014 3:14 PM PREMIUM REPRESENTATIVE Plan of Treatment Health Maintenance Due Date Last Done Comments Colon Cancer Screening-Colonoscopy 1970 Depression Screening 1969 Hepatitis C Screening 1970 Prostate Cancer Screening-PSA 1969 Hepatitis B Screening 1987 Regular Well Visit/Exam 18-64 1987 Zoster Vaccine (1 of 2) 2019 DTaP/Tdap/Td Vaccine (2 - Td or Tdap) 01/17/2020 01/16/2010 Covid-19 Vaccine (2023-2 5 season) 2024 06/27/2021, 08/23/2020, 07/25/2020 Influenza Vaccine (#1) 2024 Pneumococcal vaccine <65 Aged Out No longer eligible based on patient's age to complete this topic Insurance [facility] [id number] Care Teams Process Server Relationship Specialty Start Date End Date Charly Gonzalez MD PCP - General Family Medicine 03/29/20
[2024-08-23 11:55] VITALS: BP 131/77; PULSE 63; RESP 18; TEMP 36.1; O2SAT 100; BMI 27.0
[2024-08-23] MEDS: LACTATED RINGERS 1,000 ML 150 ML IV CONT (12:11)
--- NOTE | 2024-08-23 12:17 | P.PNAN_ITS ---
Anes - Initial Pre Proc Eval Procedure: Operation Date: 08/23/24 13:00 Proposed Procedures p Colonoscopy - Andres Mchugh MD Date/Time: 08/23/24 12:17 Surgeon: Andres Mchugh MD Pre Op Diagnosis: fecal urgency,ulcerative pancolitis Patient Data Age: 54 Gender: M Height: 1.98 m Weight: 106.1 kg Last Vital Signs Temp 36.1 C L 08/23/24 11:55 Pulse 63 08/23/24 11:55 Resp 18 08/23/24 11:55 BP 131/77 08/23/24 11:55 Pulse Ox 100 08/23/24 11:55 O2 Del Method Room Air 08/23/24 11:55 Allergies Allergy/AdvReac Type Severity Reaction Status Date / Time No Known Allergies Allergy Verified 08/23/24 11:59 Home Medications ?Medication ?Instructions ?Recorded ?Confirmed ?Type cyclobenzaprine 10 mg tablet 10 mg PO TID PRN muscle spasm #30 02/17/24 08/05/24 Rx tabs diazepam 2 mg tablet 2 mg PO BID PRN anxiety #10 tabs 05/19/24 08/05/24 Rx mesalamine 1.2 gram tablet,delayed See Rx Instructions .Route 05/24/24 08/23/24 Rx release .COMPLEX #90 tabs Patient hx anesthesia problems: none Family hx anesthesia problems: none Results Review: All pre-operative results and documents have been reviewed as part of the pre- operative evaluation. [facility] Past Medical History Medical History Screening for endocrine, metabolic, and immunity disorder Low kidney function Pseudopolyp of ascending colon Degenerative lumbar disc BMI 27.0-27.9,adult Myalgia Ulcerative colitis Colon cancer screening Family History Family History Father Hypertension Family history of cardiovascular disease Acute myocardial infarction Mother Family history of cardiovascular disease Family history of malignant neoplasm of breast in first degree relative Family history of malignant neoplasm of breast Heart disease Sibling No problems noted. Social History Social History Smoking status: Never smoker Second hand tobacco smoke exposure: Yes Alcohol intake: current Drinks per week: 4 Alcohol use details: WINE Substance use: never Substance use type: does not use Do You Feel Safe in your Home?: Yes Lack of Transportation: No Lack of Food: Never True Current Housing: I Have Housing Concerned About Future Housing: No Difficulty Paying Gas/Electric Bills: No Difficulty Paying for Meds: No Currently Unemployed: No Education: Bachelor's Degree Difficulty w/ Childcare or Family Care: No Living arrangements: with family Occupation/Education: occupation 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 Informed Consent: The patient's anesthetic plan and its attendant risks and benefits were discussed with the patient/family/POA. Questions were solicited and answers provided to the satisfaction of the patient/family/POA.
--- NOTE | 2024-08-23 13:15 | P.HP_ITS ---
H&P: HPI History of Present Illness Date/Time: 08/23/24 13:15 Chief Complaint: History of ulcerative colitis -rule out flare up Narrative: the patient has approximately a 3 year diagnosis of ulcerative colitis. he has been doing well on mesalamine, however has had 2 rounds of prednisone after which he improved but not completely. He is currently experiencing 3-4 episodes of diarrhea with urgency and no blood. His stool calprotectin from April 2024 was 101. He is here for colonoscopy. Review of Systems Review of Systems: All systems reviewed & are unremarkable except as noted in HPI and below PMFSH Past Medical History Medical History Screening for endocrine, metabolic, and immunity disorder Low kidney function Pseudopolyp of ascending colon Degenerative lumbar disc BMI 27.0-27.9,adult Myalgia Ulcerative colitis Colon cancer screening Family History Family History Father Hypertension Family history of cardiovascular disease Acute myocardial infarction Mother Family history of cardiovascular disease Family history of malignant neoplasm of breast in first degree relative Family history of malignant neoplasm of breast Heart disease Sibling No problems noted. Social History Social History Smoking status: Never smoker Second hand tobacco smoke exposure: Yes Alcohol intake: current Drinks per week: 4 Alcohol use details: WINE Substance use: never Substance use type: does not use Do You Feel Safe in your Home?: Yes Lack of Transportation: No Lack of Food: Never True Current Housing: I Have Housing Concerned About Future Housing: No Difficulty Paying Gas/Electric Bills: No Difficulty Paying for Meds: No Currently Unemployed: No Education: Bachelor's Degree Difficulty w/ Childcare or Family Care: No Living arrangements: with family Occupation/Education: occupation 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 Gender identity (if verbalized by the patient): Male Spiritual care concerns: No Meds Home Medications and Allergies Home Medications ?Medication ?Instructions ?Recorded ?Confirmed ?Type cyclobenzaprine 10 mg tablet 10 mg PO TID PRN muscle spasm #30 02/17/24 08/05/24 Rx tabs diazepam 2 mg tablet 2 mg PO BID PRN anxiety #10 tabs 05/19/24 08/05/24 Rx mesalamine 1.2 gram tablet,delayed See Rx Instructions .Route 05/24/24 08/23/24 Rx release .COMPLEX #90 tabs Allergies Allergy/AdvReac Type Severity Reaction Status Date / Time No Known Allergies Allergy Verified 08/23/24 11:59 Vital Signs Vital Signs - 24 hr 08/23/24 11:55 Temperature 97.0 F L Pulse Rate 63 Respiratory Rate 18 Blood Pressure 131/77 Pulse Oximetry 100 Oxygen Delivery Room Air Exam Narrative: GENERAL: Well-appearing, well-nourished, and in no acute distress. HEAD: Normocephalic, atraumatic. No sinus tenderness or facial swelling appreciated. EYES: PERRLA and EOMI. No evidence of erythema, swelling, or drainage. ENT: Bilateral external ears and ear canals normal. Bilateral TMs are normal.No TM perforation. Nares clear, no rhinorrhea or epistaxis. Bilateral turbinates without erythema/ swelling. Mucous membranes moist and pink. Uvula is midline without erythema and swelling. No evidence of petechial rash, cobblestoning, lesions, ulcers, erythema, swelling, exudates, peritonsillar abscess, tenting, or drooling. Breath odor and voice normal. NECK: Supple. No Lymphadenopathy or nuchal rigidity appreciated. CHEST: Bilateral lung mcdonough are clear to auscultation. No respiratory distress. No evidence of pleuritic cp upon examination. Dry cough appreciated upon examination. Cough is subtle. HEART: Regular rate and rhythm. No murmur, gallop, or rub heard. EXTREMITIES: Normal range of motion. No edema. SKIN: Warm, dry, no rash. NEURO: No focal deficits. Alert and oriented x3. Assessment and Plan Assessment and plan (1) Ulcerative colitis: Qualifiers: Ulcerative colitis location: ulcerative pancolitis Digestive disease complication type: without complication Qualified Code(s): K51.00 - Ulcerative (chronic) pancolitis without complications Code(s): K51.90 - Ulcerative colitis, unspecified, without complications Status: Acute Assessment and Plan: The patient is deemed a good candidate for the procedure. Consent signed. Will proceed.
[2024-08-23 13:43] VITALS: BP 93/58; PULSE 58; RESP 14; O2SAT 97
[2024-08-23 13:53] VITALS: BP 106/61; PULSE 60; RESP 21; O2SAT 99
[2024-08-23 14:03] VITALS: BP 112/67; PULSE 52; RESP 13; O2SAT 99
== END 2024-08-23 14:10 | disposition home or self-care (01) ==
PROVIDERS: PCP Family Medicine; Referring Provider Nurse Practitioner; Visit Provider Internal Medicine Gastroenterology
PROC: 0DJD8ZZ Inspection of Lower Intestinal Tract, Via Natural or Artificial Opening Endoscopic (ICD-10-PCS; CPT 45378; principal; 2024-08-23 13:00)
DX: K51.00 Ulcerative (chronic) pancolitis without complications (principal)
CPT/HCPCS: 45380; 88305; J2704; J7120

== ENCOUNTER 2024-08-26 10:11 | Outpatient (CLI) | payer OTHER, SELFPAY ==
--- NOTE | ~2024-08-26 | XR_ITS ---
Lumbosacral Spine: AP, oblique, and lateral views Clinical History: Pain Findings: The normal lordotic curve is maintained. No fracture or subluxation. There is advanced dege nerative disc narrowing L4-L5 and L5-S1. There is moderate to advanced facet arthropathy throughout t he lumbar spine, worst from L4 through S1. The sacroiliac joints are normally outlined. Impression: Moderate to advanced degenerative spondylosis, as above. Reviewed, dictated and finalized at location M. ATRIC NURSING ASSISTANT Impression: Moderate to advanced degenerative spondylosis, as above.
--- NOTE | ~2024-08-26 | XR_ITS ---
XR cervical spine min 6V 08/26/2024 10:32 Indication: Degenerative spondylosis Procedure: 6 view cervical spine Comparison: No prior studies for comparison. Findings: Normal cervical lordosis. There is disc narrowing at C4-5. Odontoid process is normal. Ther e is advanced facet degenerative change at C4-5 and C5-6. Lung apices are normal. No alteration of al ignment with flexion and extension. No prevertebral soft tissue abnormality. Craniovertebral junction is unremarkable. Impression: 1: Moderate cervical spondylosis. Reviewed, dictated and finalized at location B. SION SCIENCE ANALYST Impression: 1: Moderate cervical spondylosis.
== END 2024-08-26 10:12 | disposition home or self-care (01) ==
PROVIDERS: PCP Family Medicine; Visit Provider Nurse Practitioner Family
DX: M51.369 Other intervertebral disc degeneration, lumbar region without mention of lumbar back pain or lower extremity pain (principal); M50.30 Other cervical disc degeneration, unspecified cervical region; M47.892 Other spondylosis, cervical region
CPT/HCPCS: 72052; 72110

== ENCOUNTER 2024-11-02 11:12 | Outpatient (CLI) | payer OTHER, SELFPAY ==
[2024-11-02 11:26] LABS: Hematocrit 44.3 % (42.0-52.0); Hemoglobin 14.1 g/dL (14.0-18.0); Mean Corpuscular HGB Conc 31.8 g/dl (32-36); Mean Corpuscular Hemoglobin 30.6 pg (26-34); Mean Corpuscular Volume 96.1 fl (80-100); Mean Platelet Volume 9.7 fl (7.4-10.4); Platelet Count Result 237 k/mm3 (150-375); Red Blood Count 4.61 M/mm3 (4.6-6.20); Red Cell Distribution Width 13.3 % (11.5-14.5); White Blood Count 5.4 K/mm3 (4.5-10.0)
[2024-11-02 11:45] LABS: Iron 125 ug/dL (49-181)
[2024-11-02 11:54] LABS: Percent Iron Saturation 45 % (20-50)
[2024-11-02 11:58] LABS: Alanine Aminotransferase 22 U/L (6-50); Albumin Level 4.4 g/dL (3.5-5.1); Alkaline Phosphatase 56 U/L (38-126); Anion Gap 9 mmol/L (4-12); Aspartate Amino Transferase 25 U/L (17-59); Bilirubin,Total 0.6 mg/dL (0.2-1.3); Blood Urea Nitrogen 21 mg/dL (9-20); CRP < 0.5 mg/dL (<1.0); Calcium 9.4 mg/dL (8.4-10.2); Carbon Dioxide 27 mmol/L (22-30); Chloride 104 mmol/L (98-107); Estimated Glomerular Filt Rate 50; Glucose 62 mg/dL (65-110); Potassium 4.5 mmol/L (3.4-5.0); Sodium 140 mmol/L (137-145)
[2024-11-02 12:21] LABS: Erythrocyte Sedimentation Rate 8 mm/hr (0-20)
--- OUTSIDE RECORDS SUMMARY | 2024-11-02 12:39 | XMS_ITS | Referral Summary ---
Author Organization [facility] Address [address] [place] [phone] Care Team Providers Care Twister Tender Paper Name Role Phone Charly Gonzalez MD Primary Care Provider [phone] Encounters Date Type Department Care Team Description 09/26/2024 Results Follow-Up [facility] D[facility]atology [address] [place] [address] [address] [place] [phone] Jayson Domingo MD 09/15/2024 Orders Only [facility] [address] [place] [address] Jayson Domingo MD Neoplasm of unspecified behavior of bone, soft tissue, and skin 09/14/2024 2:45 PM CDT Office Visit [facility] [address] [place] [address] Health [address] [place] [phone] Jayson Domingo MD Neoplasm of unspecified behavior of bone, soft tissue, and skin (Primary Dx); Actinic keratosis; Multiple benign nevi from Last 3 Months Allergies Active Allergy Reactions Criticality Noted Date Comments Venom-Honey Bee Anaphylaxis High Reaction: ANAPHYLAXIS, Medications cephalexin (KEFLEX) 500 mg capsule take 1 capsule by oral route every 6 hours 28 0 4 Active EPINEPHrine (EPIPEN) 0.3 mg/0.3 mL injection syringe Take as directed 2 2 9 Active cyclobenzaprine (FLEXERIL) 10 mg tablet 8 Active naproxen (NAPROSYN) 500 mg tablet 8 Active predniSONE (DELTASONE) 20 mg tablet 08/29/201 8 Active mesalamine (PENTASA) 250 mg CR capsuleIndicati ons:Ulcerative Colitis Take 250 mg by mouth 4 (four) times a day Active azelastine (ASTELIN) 137 mcg (0.1 %) nasal spray Administer 2 sprays into each nostril 2 (two) times a day 5 Active budesonide EC (ENTOCORT EC) 3 mg 24 hr capsule 5 Active fluorouraciL (EFUDEX) 5 % cream Apply topically 2 (two) times a day Apply to skin cancer site on left side of neck for 4 weeks then stop. 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 Gender Identity Not on file Sexual Orientation Not on file Last Filed Vital Signs Vital Sign Reading Time Taken Comments Blood Pressure 128/72 05/11/2014 3:14 PM PROMOTIONS EXECUTIVE Pulse 84 05/11/2014 3:14 PM PROMOTIONS EXECUTIVE Temperature - - Respiratory Rate - - Oxygen Saturation - - Inhaled Oxygen Concentration - - Weight 104.8 kg (231 lb) 05/11/2014 3:14 PM PROMOTIONS EXECUTIVE Height 198.1 cm (6' 6 ) 05/11/2014 3:14 PM PROMOTIONS EXECUTIVE Body Mass Index 26.69 05/11/2014 3:14 PM PROMOTIONS EXECUTIVE Plan of Treatment Not on file Procedures Procedure Name Priority Date/Time Associated Diagnosis Comments SURGICAL PATHOLOGY Routine 09/14/2024 12 :00 AM CDT Neoplasm of unspecified behavior of bone, soft tissue, and skin from Last 3 Months Results * Surgical pathology (09/14/2024 12:00 AM CDT) Tissue specimen (specimen) (Skin, shave biopsy) 09/14/2024 09/15/2024 8:12 AM CDT [facility] - 09/23/2024 11:11 AM CDT EPIC results best viewed via link to PDF [facility], [address], [place] [address] [email or web address] Note to Patients: This report may contain a detailed description of human tissue sent by a health care provider to the laboratory for pathologic evaluation. The content of this report is essential for diagnosis and may provide important critical findings. This information may be unfamiliar to patients to review without a medical professional present. It is advised that the patient review this report in the presence of a health care provider who can answer questions and explain the details. FINAL REPORT Patient Information: PATIENT NAME: MIKHAIL MCKEON SEX: M : 1970 (Age: 54) Specimen Information: COLLECTED: 09/14/2024 RECEIVED: 09/15/2024 REPORTED: 09/23/2024 Submitting Physician Information: Jayson Domingo M.D. [address] [facility] [place] [address], DERMATOPATHOLOGY REPORT RESULTS DIAGNOSIS: SKIN, LEFT NECK, SHAVE BIOPSY: BASAL CELL CARCINOMA Note: Immunohistochemical stain for BerEP4/EpCAM is positive in lesional cells, supporting the diagnostic impression. cr/spng By this signature, I attest that the above diagnosis is based upon my personal examination of the slides(and/or other material indicated in the diagnosis). Alexandr Carver MD, PhD Report Electronically Reviewed and Signed Out By Alexandr Carver MD, PhD 09/23/2024 11:11:15 CLINICAL INFORMATION SCCIS VS BCC SPECIMEN DATA MICROSCOPIC DESCRIPTION: Irregular aggregates of atypical basal epithelial cells with palisading of their peripheral nuclei are present within the dermis. (C44.91) GROSS DESCRIPTION: Received in a formalin-containing bottle is a superficial fragment of pale dumont, scaly and semi-translucent skin measuring 0.7 by 0.5 by 0.1 cm. The surgical margin is inked blue. The specimen is sectioned into 2 pieces and submitted entirely in a single cassette. Due to shrinkage, measurements may be different than those at time of procedure. dh/mxf ICD-9 A; ZSD.176 Clerical Data A; 21460, 26763-FY The characteristics of special, immunohistochemical, and immunofluorescence stains and in-situ hybridization tests performed by the [facility] were deemed acceptable in ongoing senior quality assurance engineer measures and in compliance with regulations drawn from the Clinical Laboratory Improvement Act tc1982 (CLIA '88). Control reactions for all stains performed were deemed adequate and appropriate by a pathologist prior to evaluation of patient tissue. Some diagnoses were rendered with the assistance of laboratory-developed tests utilizing analyte-specific reagents; the performance characteristic of these tests were determined by [facility] and are not cleared or approved by the [place] Food an Drug administration. Laboratory developed test may only be performed in a facility that is certified by the [facility] as a high-complexity laboratory under CLIA '88. These tests are used for clinical purposes and are not investigational. Jayson Domingo MD LAB PATHOLOGY ORDERABLES Final Result [facility] [address] [place] [id number] from Last 3 Months Insurance [facility] [id number] Care Teams Twister Tender Paper Relationship Specialty Start Date End Date Charly Gonzalez MD PCP - General Family Medicine 03/29/20
--- OUTSIDE RECORDS SUMMARY | 2024-11-02 12:39 | XMS_ITS | Clinical Summary ---
Author Organization [facility] Address [address] [place] [address] Care Team Providers Care Nurse Administrator Name Role Phone Charly Gonzalez MD Primary Care Provider [phone] Allergies Active Allergy Reactions Criticality Noted Date [...] 8 Active predniSONE (DELTASONE) 20 mg tablet 8 Active mesalamine (PENTASA) 250 mg CR [...] (10/11/2016): Mixed Hyperlipidemia Hypopigmentation 02/02/2013 Sunburn 02/02/2013 Encounters Date Type Department Care Team Description 09/26/2024 Results Follow-Up [facility] Dermatology [address] [facility] [address] [place] [phone] Jayson Domingo MD 09/15/2024 Orders Only [facility] [address] [place] [address] Jayson Domingo MD Neoplasm of unspecified behavior of bone, soft tissue, and skin 09/14/2024 2:45 PM CDT Office Visit [facility] Dermatology [facility] [address] [place] [phone] Jayson Domingo MD Neoplasm of unspecified behavior of bone, soft tissue, and skin (Primary Dx); Actinic keratosis; Multiple benign nevi from Last 3 Months Immunizations Immunization Administration Dates Next Due Tdap [...] on file Legal Sex Male 11:53 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 Gender Identity Not on file Sexual Orientation Not on file Obstetrics History Last Filed Vital Signs Vital Sign Reading Time Taken Comments Blood Pressure 128/72 05/11/2014 3:14 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 TECH Pulse 84 05/11/2014 3:14 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 TECH Temperature - - Respiratory Rate - - Oxygen Saturation - - Inhaled Oxygen Concentration - - Weight 104.8 kg (231 lb) 05/11/2014 3:14 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 TECH Height 198.1 cm (6' 6 ) 05/11/2014 3:14 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 TECH Body Mass Index 26.69 05/11/2014 3:14 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 TECH Plan of Treatment Health Maintenance Due Date Last Done Comments Colon Cancer Screening-Colonoscopy 1970 Depression Screening 1970 Hepatitis C Screening 1970 Prostate Cancer Screening-PSA 1970 Hepatitis B Screening 1987 Regular Well Visit/Exam 18-64 1987 Zoster Vaccine (1 of 2) 2019 DTaP/Tdap/Td Vaccine (2 - Td or Tdap) 01/17/2020 01/16/2010 Covid-19 Vaccine (4 - 2023-2 5 season) 2024 06/27/2021, 08/23/2020, 07/25/2020 Influenza Vaccine (Season Ended) 2025 Pneumococcal vaccine <65 Aged Out No longer eligible based on patient's age to complete this topic Procedures Procedure Name Priority Date/Time Associated Diagnosis Comments SURGICAL PATHOLOGY Routine 09/14/2024 12 :00 AM CDT Neoplasm of unspecified behavior of bone, soft tissue, and skin from Last 3 Months Results * Surgical pathology (09/14/2024 12:00 AM CDT) Tissue specimen (specimen) (Skin, shave biopsy) 09/14/2024 09/15/2024 8:12 AM CDT [facility] - 09/23/2024 11:11 AM CDT [facility] results best viewed via link to PDF [facility] [address] [place] [address], [address], [place] [address] [email or web address] Note to Patients: This report may contain [...] 09/23/2024 Submitting Physician Information: Jayson Domingo M.D. [address] [place] [address], [address] [place] [address], DERMATOPATHOLOGY REPORT RESULTS DIAGNOSIS: SKIN, LEFT NECK, [...] dh/mxf ICD-9 A; ZSD.176 Clerical Data A; 33863, 91147-RU The characteristics of special, immunohistochemical, and immunofluorescence stains and in-situ hybridization tests performed by the [facility] were deemed acceptable in ongoing training and quality manager measures and in compliance with regulations drawn from the Clinical Laboratory Improvement Act lv0134 (CLIA '88). Control reactions for all stains performed were deemed adequate and appropriate by a pathologist prior to evaluation of patient tissue. Some diagnoses were rendered with the assistance of laboratory-developed tests utilizing analyte-specific reagents; the performance characteristic of these tests were determined by [facility] and are not cleared or approved by the [place] Food an Drug administration. Laboratory developed test may only be performed in a facility that is certified by the [facility] as a high-complexity laboratory under CLIA '88. These tests are used for clinical purposes and are not investigational. Jayson Domingo MD LAB PATHOLOGY ORDERABLES Final Result [facility]MATOPATHOLOGY CENTER [address] [place] [address] from Last 3 Months Insurance [facility] [id number] Care Teams Nurse Administrator Relationship Specialty Start Date End Date Charly Gonzalez MD PCP - General Family Medicine 03/29/20
--- OUTSIDE RECORDS SUMMARY | 2024-11-02 12:39 | XMS_ITS | Encounter Summary ---
Author Organization [facility] Address [address] [place] [address] Phone Care Team Providers Care Deliverer Pharmacy Name Role Phone Charly Gonzalez MD Primary Care Provider Encounter Details Date Type Department Care Team (Late st Contact Info) Description 09/26/2024 Results Follow-Up [facility] Dermat[facility] [address] [facility] [address] [place] [address] Jayson Domingo MD [address] [facility] [address] [place], [place] [id number] Social History Tobacco Use Types Packs/Day Years Used Date Smoking Tobacco: Never Smokeless Tobacco: Never Alcohol Use Standard Drinks/Week Comments Yes 0 (1 standard drink = 0.6 oz pur e alcohol) Sex and Gender Information Value Date Recorded Sex Assigned at Not on file Legal Sex Male 11:53 PM INSPECTOR PAWNSHOP DETAIL Gender Identity Not on file Sexual Orientation Not on file documented as of this encounter Miscellaneous Notes * Result Encounter Note - Jayson Domingo MD - 09/26/2024 4:29 PM CDT Call in: Fluorouracil 5% cream, apply bid to skin cancer site on left neck for 4 weeks, then stop. Disp 40gm. 0 RF * Result Encounter Note - Jayson Domingo MD - 09/26/2024 4:28 PM CDT Let patient know biopsy shows skin cancer (BCC) on left neck as suspected Need to treat with Fluorouracil (Efudex) cream 2x/day for 4 weeks documented in this encounter Plan of Treatment Not on file documented as of this encounter Visit Diagnoses Not on filedocumented in this encounter Care Teams Deliverer Pharmacy Relationship Specialty Start Date End Date Charly Gonzalez MD PCP - General Family Medicine 03/29/20 documented as of this encounter
[2024-11-02 12:58] LABS: Folic Acid 15.7 ng/mL (2.76->20)
== END 2024-11-02 11:13 | disposition home or self-care (01) ==
LOC: ANHLAB 11:13
PROVIDERS: PCP Family Medicine; Visit Provider Nurse Practitioner
DX: K51.00 Ulcerative (chronic) pancolitis without complications (principal); K52.832 Lymphocytic colitis
CPT/HCPCS: 36415; 80053; 82607; 82652; 82728; 82746; 83540; 83550; 85027; 85652; 86140